=== PATIENT | female | born 1990 | race African-American/Black ===

== ENCOUNTER 2017-05-24 01:40 | Emergency (ER) | payer BC, OTHER ==
[~2017-05-24] VITALS: Ht 160 cm; Wt 68.0 kg
--- NOTE | ~2017-05-24 | EKG ---
PATIENT: BREANNE STEWART UNIT #: [id number] Ventricular Rate: 68 BPM Atrial Rate: 68 BPM P-R Interval: 148 ms QRS Duration: 88 ms Q-T Interval: 404 ms QTC Calculation(Bezet): 429 ms P Devens: 75 degrees Calculated R Devens: 73 degrees Calculated T Devens: 44 degrees Diagnosis Line: Normal sinus rhythm Diagnosis Line: Normal ECG Diagnosis Line: Diagnosis Line: Confirmed by RICK HOBBS MD ([id number]) on Diagnosis Line: 05/26/2017 8:06:27 PM INTERPRETING MD: JULITO
[2017-05-24 02:58] LABS: BASOPHIL# 0.1 X10e3 (0-0.3); BASOPHIL% 0.5 % (0-2.5); EOSINOPHIL% 0.2 % (0.0-7.0); HEMATOCRIT 29.4 % (35.0-45.0); HEMOGLOBIN 10.1 gm/dL (12.0-16.0); LYMPHOCYTE# 2.7 X10e3 (1.0-3.5); LYMPHOCYTE% 25.2 % (17.0-45.0); MEAN CELL VOLUME 129.1 FL (83-96); MEAN CORPUSCULAR HEMOGLOBIN 44.1 PG (28-34); MEAN CORPUSCULAR HGB CONC 34.2 g/dL (30-36); MEAN PLATELET VOLUME 8.4 FL (6.5-11.5); MONOCYTE# 0.7 X10e3 (0-1.0); MONOCYTE% 6.8 % (3.0-12.0); NEUTROPHIL# 7.2 X10e3 (1.5-7.1); NEUTROPHIL% 67.3 % (40-75); PLATELET COUNT 216 X10e3 (140-420); RED BLOOD COUNT 2.28 X10e (3.90-5.30); RED CELL DISTRIBUTION WIDTH 16.6 % (11.0-15.5); WHITE BLOOD COUNT 10.7 X10e3 (4.0-10.5)
[2017-05-24 02:59] LABS: DIFF IND YES
[2017-05-24 03:14] LABS: ACETAMINOPHEN 21 ug/mL; ALBUMIN SERUM 3.9 g/dL (3.5-5.0); ALKALINE PHOSPHATASE 38 U/L (32-92); ALT (SGPT) 17 U/L (10-40); AST (SGOT) 17 U/L (10-42); BILIRUBIN, DIRECT 0.1 mg/dL (0.0-0.2); BILIRUBIN,INDIRECT 1.1 mg/dL (0.0-0.9); BILIRUBIN,TOTAL 1.2 mg/dL (0.2-2.0); BLOOD UREA NITROGEN 6 mg/dL (9-23); BUN/CREATININE RATIO 8.57; CALCIUM SERUM 8.8 mg/dL (8.4-10.2); CARBON DIOXIDE 24 mmol/L (22-31); CHLORIDE 109 mmol/L (100-111); CREATININE SERUM 0.7 mg/dL (0.6-1.4); GLOM FILT RATE Estimated 140.5 mL/min (>60); GLUCOSE FASTING 110 mg/dL (70-110); POTASSIUM 3.2 mmol/L (3.5-5.1); PROTEIN TOTAL SERUM 7.5 g/dL (6.0-8.3); SALICYLATE <4.0 mg/dL; SODIUM 137 mmol/L (135-145)
[2017-05-24 03:20] LABS: ALCOHOL BLOOD <5 mg/dL ([, 0])
[2017-05-24 03:23] LABS: PLATELET ESTIMATE NORMAL (NORMAL); RBC NORMAL YES; SMUDGE CELLS 5 /100
[2017-05-24 04:16] LABS: AMPHETAMINE NEG (NEG); BARBITURATES NEG (NEG); BENZODIAZEPINES NEG (NEG); COCAINE NEG (NEG); MARIJUANA NEG (NEG); OPIATES POS (NEG); TRICYCLIC ANTIDEPRESSANTS NEG (NEG); U METHADONE NEG (NEG)
[2017-05-24 06:36] LABS: SALICYLATE <4.0 mg/dL
[2017-05-24 06:41] LABS: ACETAMINOPHEN <10 ug/mL
== END 2017-05-24 13:00 | disposition home or self-care (01) ==
LOC: CED 01:40
PROVIDERS: Emergency Medicine
DX: T42.6X2A Poisoning by other antiepileptic and sedative-hypnotic drugs, intentional self-harm, initial encounter (principal); T39.1X2A Poisoning by 4-Aminophenol derivatives, intentional self-harm, initial encounter; Y92.9 Unspecified place or not applicable
CPT/HCPCS: 36415; 80048; 80076; 80307; 84703; 85025; 93005; 96374; 96376; 99285; G0480; J1642; J2405

== ENCOUNTER 2017-05-24 07:00 | Inpatient (IN) | payer OTHER ==
[~2017-05-24] VITALS: Ht 160 cm; Wt 70.3 kg
--- NOTE | ~2017-05-24 | HP ---
Unit #: [id number] #: [id number] Patient: BREANNE STEWART [id number] [facility] [address] [place] [address] [id number] MR#: [id number] NAME: BREANNE STEWART ROOM: [facility] Age: 26 Sex: F Admission Date: 05/24/2017 : 1990 Attending Physician: Bry Van M.D. Admitting Physician: Bry Van M.D. Primary Care Physician: Meagan Jacques M.D. HISTORY AND PHYSICAL HISTORY OF PRESENT ILLNESS The patient is a 26-year-old female who states that she attempted suicide by overdosing on several Neurontin pills. PAST MEDICAL HISTORY Significant for chronic back pain and sickle cell anemia. PAST SURGICAL HISTORY Significant for vein bypass and grafting of some sort and port placement. ALLERGIES None. SOCIAL HISTORY Positive for smoking, alcohol and occasional drugs. FAMILY HISTORY Noncontributory. REVIEW OF SYSTEMS CONSTITUTIONAL: No fever or chills. HEENT: Denies any sore throat, ear pain or runny nose. CARDIOVASCULAR: Denies chest pain, irregular heart rhythm or palpitations. CHEST: Denies shortness of breath or cough. No hemoptysis. GASTROINTESTINAL: Denies nausea, vomiting, diarrhea or chronic constipation. ENDOCRINE: Denies history of increased thirst or urination. No recent significant weight loss or gain. GENITOURINARY: Denies dysuria, frequency, or hematuria. SKIN: Denies any rashes. HEMATOLOGIC: Denies history of increased bleeding or bruising. MUSCULOSKELETAL: Denies any hot, swollen joints. No generalized muscle pain. NEUROLOGIC: Denies problems with vision or speech. No frequent, severe headaches. No numbness, tingling or weakness in any extremities. Denies loss of bladder or bowel control. CURRENT MEDICATIONS 1. Pepcid 20 mg 1 p.o. daily. 2. Folic acid 1 mg p.o. daily. 3. Zyrtec 10 mg p.o. daily. 4. Neurontin 600 mg p.o. t.i.d. 5. Hydroxyurea 500 mg 3 daily. Unit #: [id number] #: [id number] Patient: BREANNE STEWART 6. Hydrocodone 7.5/325 p.o. q. 4 hours p.r.n. pain. PHYSICAL EXAMINATION GENERAL: Alert, oriented, in no acute distress. VITAL SIGNS: Temperature 98.5, blood pressure 124/78, heart rate 64, respirations 16. HEIGHT: 5 feet 3 inches. WEIGHT: 155 pounds. SKIN: Warm and dry without rash or lesion. Scars to both wrists, both knees and right lower extremity and lip piercing. HEENT: Normocephalic. TMs not viewed. Oral and nasal passages clear. Conjunctivae clear. PERRLA. EOMs intact. NECK: Supple without lymphadenopathy or thyromegaly. HEART: Regular rate and rhythm without murmur. LUNGS: Clear. ABDOMEN: Soft, nontender, without masses or hepatosplenomegaly. : Not done. EXTREMITIES: No evidence of cyanosis, clubbing or edema. Moves all without focal deficit. NEUROLOGICAL: Grossly within normal limits. Cranial Nerves: II: Visual rondon are intact. III, IV AND : Extraocular movements are intact. Pupils are equal, round and reactive to light. V: Facial sensation is grossly normal. VII: Facial movements and expression are normal. VIII: Auditory acuity grossly intact. IX, X: Uvula is midline. Phonation is normal. XI: Patient shrugs shoulders and turns head normally. XII: Tongue protrudes in the midline. Sensory and Motor Function: Sensory and motor sensation is grossly normal. Motor: moves all extremities well. Coordination: Gait is normal. Deep Tendon Reflexes: Intact. IMPRESSION Psychiatric admission. RECOMMENDATIONS PSYCHIATRIC: Per psychiatrist. MEDICAL: No contraindication to participate in facility's activities. MEDICAL PROGNOSIS Good. Dictated by... Kandice Woods/martin TD: 05/24/2017 20:46 JOB #: [id number] Unit #: [id number] #: [id number] Patient: BREANNE STEWART HISTORY AND PHYSICAL Page 1 of 1 X Elinor Barnett APR X HISTORY AND PHYSICAL
--- NOTE | ~2017-05-24 | DS ---
Unit #: [id number] #: [id number] Patient: BREANNE STEWART [id number] [facility] [address] [place] [address] [id number] MR#: [id number] NAME: BREANNE STEWART ROOM: [facility] Age: 26 Sex: F Admission Date: 05/24/2017 : 1990 Discharge Date: 05/26/2017 Attending Physician: Bry Van M.D. Primary Care Physician: Meagan Jacques M.D. DISCHARGE SUMMARY REASON FOR ADMISSION The patient is a 26-year-old female, admitted following an ingestion of Neurontin and hydrocodone. HOSPITAL COURSE The patient was admitted to the [facility] unit and placed on suicide precautions. She was pleasant and cooperative throughout her stay in the hospital. An attempt was made to transfer the patient to the [address] [place] [address] unit, but unfortunately no bed became available during the patient's brief stay in the hospital. She consistently denied suicidal ideation during her brief stay in the hospital and was pleasant and cooperative on interactions with peers and staff. The patient was begun on Lexapro 10 mg daily. On 05/25/2017, she did report some difficulty sleeping after taking the medication and was advised to change the dosing time to a.m. By 05/26/2017, the patient was in bright spirits and agreeable to plan for followup in the intensive outpatient program provided by this facility. Discharge was ordered. FINAL DIAGNOSES Major depressive disorder, single episode, moderate; sickle cell anemia. DISPOSITION ON DISCHARGE The patient is discharged on the following medications: Lexapro 10 mg daily for depression. She will also continue previously prescribed Pepcid 20 mg daily for GERD, Folvite 1 mg daily for nutritional supplementation, Claritin 10 mg once daily for environmental allergies, hydroxyurea 1500 mg once daily for sickle cell anemia, Lortab 7.5/325 one tablet q.4 hours p.r.n. pain, and Lexapro 10 mg nightly for depression. DISCHARGE INSTRUCTIONS No dietary or physical restrictions were placed upon the patient at the time of discharge. FOLLOWUP Followup will take place through the auspices of the intensive outpatient program and community mental health resources. PROGNOSIS The patient's prognosis is considered good. ADDENDUM This physician spoke and has instructed the patient to take Lexapro in the morning. Unit #: [id number] #: [id number] Patient: BREANNE STEWART Dictated by... Bry Van M.D. CB/janis TD: 05/26/2017 14:41 JOB #: [id number] DISCHARGE SUMMARY Page 1 of 1 X Bry Van MD X DISCHARGE SUMMARY
--- NOTE | ~2017-05-24 | PA ---
Unit #: [id number] #: [id number] Patient: BREANNE STEWART [id number] [place] [address] [id number] I MR#: [id number] NAME: BREANNE STEWART ROOM: [facility] Age: 26 Sex: F Admission Date: 05/24/2017 : 1990 Date of Assessment: 05/25/2017 Attending Physician: Bry Van M.D. Admitting Physician: Bry Van M.D. Primary Care Physician: Meagan Jacques M.D. PSYCHIATRIC ASSESSMENT IDENTIFYING INFORMATION The patient is a 26 you female admitted following the ingestion of hydrocodone and Neurontin. INFORMANT(S) The patient, patient's reliability is good. CHIEF COMPLAINT I took an overdose HISTORY OF PRESENT ILLNESS The patient is a 26-year-old single female admitted following an ingestion of hydrocodone and Neurontin. The patient reports that she had quarreled with her mother and that this had been a precipitant to this episode but she reports a history of feelings of depression for several months. She reports a 50 pound weight loss and poor sleep as well as lack of energy over the past five to six months. Current stressors include a recent breakup of relationship as well as the of the patient's uncle. The patient also suffers from sickle cell anemia and her health has always been an issue. The patient has never been antidepressant or other psychotropic medications. She denies abuse of any psychoactive substances. She lives with her mother and nephew. She does not work outside the home. PAST PSYCHIATRIC HISTORY She denies suicidal ideation when seen today and expresses appropriate contrition of the events leading to hospitalization. PAST PSYCHIATRIC HISTORY As above. PAST MEDICAL HISTORY The patient suffers from sickle cell anemia. She has had a vein bypass and grafting of some sort for poor placement per the chart. MEDICATIONS 1. Pepcid 2. Folic acid 3. Zyrtec 4. Neurontin 5. Hydroxyurea 6. Hydrocodone ALLERGIES Unit #: [id number] #: [id number] Patient: BREANNE STEWART None reported FAMILY HISTORY Noncontributory SOCIAL HISTORY The patient denies use of alcohol, tobacco or street drugs. She is not presently employed. MENTAL STATUS EXAMINATION At this time reveals the patient to be a well-developed, well-nourished female appearing her stated age. She is in no apparent physical distress at the time of examination. She is awake, alert, and oriented in all spheres. Her mood is dysphoric Her affect is congruent. Speech is generally relevant and coherent. There are no gross deficits in memory or cognition noted. Intelligence is judged to be in the average range based on fund of knowledge. The patient is cooperative throughout the interview. She is currently reporting no suicidal or homicidal ideation and denies any psychotic symptoms. Judgment and insight appear to be intact. ASSETS AND LIABILITIES ASSETS: Motivation for change. LIABILITIES: Lack of resources, health issues. DIAGNOSTIC IMPRESSION 1. Major depressive single episode, moderate. 2. Sickle cell anemia. 3. Status post hydrocodone and Neurontin ingestion without sequela. HOSPITAL COURSE The patient remains hospitalized for safety and stabilization. We have reinitiated previously prescribed medications and I will add Lexapro 10 mg daily to (1) the patient's depressive symptoms. I will attempt to transfer the patient to the [address] [place] [address] unit as her pathology does not appear to be related to any substance abuse issues and discharge could take place as early as tomorrow. Followup to take place in the intensive outpatient program. ESTIMATED LENGTH OF STAY Two to three days. Dictated by... Bry Van M.D. MARY/sil TD: 05/26/2017 01:39 JOB #: [id number] Unit #: [id number] #: [id number] Patient: BREANNE STEWART PSYCHIATRIC ASSESSMENT Page 1 of 1 X Bry Van MD X PSYCHIATRIC ASSESSMENT
== END 2017-05-26 16:10 | DRG 885 ==
LOC: P1E 13:13
DX: F33.1 Major depressive disorder, recurrent, moderate (principal); D57.1 Sickle-cell disease without crisis; F17.210 Nicotine dependence, cigarettes, uncomplicated
CPT/HCPCS: 84703

== ENCOUNTER 2017-07-16 15:43 | Emergency (ER) | payer OTHER, BC ==
[~2017-07-16] VITALS: Ht 160 cm; Wt 64.9 kg
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
== END 2017-07-16 17:15 | disposition home or self-care (01) ==
LOC: CED 15:43 → CFTX 17:05 → CED 17:05
DX: S23.3XXA Sprain of ligaments of thoracic spine, initial encounter (principal); S33.5XXA Sprain of ligaments of lumbar spine, initial encounter; V49.50XA Passenger injured in collision with unspecified motor vehicles in traffic accident, initial encounter; Y92.410 Unspecified street and highway as the place of occurrence of the external cause; F17.210 Nicotine dependence, cigarettes, uncomplicated
CPT/HCPCS: 72072; 72100; 84703; 99283